=== PATIENT | female | born 1990 ===

== ENCOUNTER 2023-08-25 11:15 | Inpatient (IN) | payer OTHER ==
[2023-08-25] MEDS ORDERED: ELECTROLYTE-148 SOLN 1,000 ML IV SCH ×2 (12:45)
[2023-08-25] MEDS ORDERED: DINOPROSTONE 10 MG VAGINAL SUPPOSITORY VG ONE (13:00)
[2023-08-25 14:48] LABS: BASO % 0.4 % (0-2.0); EOS % 0.4 % (0-4.5); HEMATOCRIT 32.3 % (32.4-45.2); LYMPH % 25.9 % (8-40); MCH 29.6 pg (25.7-33.7); MEAN CELL VOLUME 87.3 fl (80-96); MONO % 5.5 % (3.8-10.2); NEUT % 67.8 % (42.8-82.8); PLATELET COUNT 181 10^3/uL (134-434); RDW 13.8 % (11.6-15.6); WHITE BLOOD COUNT 7.7 K/mm3 (4.0-10.0)
[2023-08-25 14:58] LABS: INR 1.02 (0.83-1.09); PROTHROMBIN TIME (PATIENT) 11.8 SEC (9.7-13.0)
[2023-08-25 15:00] LABS: ACTIVATED PTT 28.9 SECONDS (25.2-36.5)
[2023-08-25 15:08] LABS: POTASSIUM 4.2 mmol/L (3.5-5.1)
[2023-08-25 15:10] LABS: BLOOD UREA NITROGEN 10.6 mg/dL (7-18)
[2023-08-25 15:13] LABS: CREATININE 0.5 mg/dL (0.55-1.3)
[2023-08-25] MEDS ORDERED: CITRIC ACID/SODIUM CITRATE 30 ML UNIT-DOSE CUP PO ONE (16:15)
[2023-08-25] MEDS ORDERED: ELECTROLYTE-148 SOLN 500 ML IV SCH (16:15)
[2023-08-25] MEDS ORDERED: DEXAMETHASONE SOD PHOSPHATE 4 MG/1 ML VIAL ONE (16:26)
[2023-08-25] MEDS ORDERED: ceFAZolin SODIUM 1 GM VIAL ONE (16:26)
[2023-08-25] MEDS ORDERED: ONDANSETRON 4 MG/2 ML VIAL ONE (16:26)
[2023-08-25] MEDS ORDERED: KETOROLAC TROMETHAMINE 30 MG/1 ML VIAL ONE (16:26)
[2023-08-25] MEDS ORDERED: METOCLOPRAMIDE HCL INJECTION 10 MG/2 ML VIAL ONE (16:26)
[2023-08-25] MEDS ORDERED: PHENYLEPHRINE HCL 10 MG/1 ML SINGLE DOSE VIAL ONE (16:26)
[2023-08-25] MEDS ORDERED: ePHEDrine SULFATE 50 MG/1 ML AMPULE ONE (16:32)
[2023-08-25] MEDS ORDERED: SODIUM CHLORIDE 0.9% P/F 10 ML VIAL IJ ONE (16:32)
[2023-08-25] MEDS ORDERED: IBUPROFEN 800 MG/8 ML IJ IVPB PRN (16:34)
[2023-08-25] MEDS ORDERED: ACETAMINOPHEN 325 MG TABLET (FP) PO PRN (16:34)
[2023-08-25] MEDS ORDERED: FENTANYL CITRATE/PF 50 MCG/ML VIAL ONE (16:34)
[2023-08-25 17:28] LABS: HIV INTERPRETATION NEGATIVE (NEGATIVE)
[2023-08-25] MEDS ORDERED: OXYTOCIN 20 UNITS in 0.9% NS 20 UNIT/1,000 ML INFUS.BAG IV ONE (18:43)
[2023-08-25] MEDS: OXYTOCIN 20 UNITS in 0.9% NS 20 UNIT/1,000 ML INFUS.BAG IV SCH (18:45)
[2023-08-26] MEDS: OXYTOCIN 20 UNITS in 0.9% NS 20 UNIT/1,000 ML INFUS.BAG IV SCH (02:31)
[2023-08-26] MEDS ORDERED: oxyCODONE HCL 5 MG TABLET PO PRN (04:34)
[2023-08-26 09:16] LABS: BASO % 0.3 % (0-2.0); HEMATOCRIT 26.9 % (32.4-45.2); HEMOGLOBIN 8.8 GM/dL (10.7-15.3); LYMPH % 19.6 % (8-40); MCH 29.3 pg (25.7-33.7); MCHC 32.8 g/dl (32.0-36.0); MEAN CELL VOLUME 89.3 fl (80-96); MEAN PLT VOLUME 9.6 fl (7.5-11.1); MONO % 4.8 % (3.8-10.2); NEUT % 75.3 % (42.8-82.8); PLATELET COUNT 149 10^3/uL (134-434); RBC 3.01 M/mm3 (3.60-5.2); RDW 13.2 % (11.6-15.6); WHITE BLOOD COUNT 11.3 K/mm3 (4.0-10.0)
[2023-08-26] MEDS ORDERED: DIPHTH,PERTUSS(ACELL),TET 0.5 ML DISP.SYRIN IM ONE (10:00)
[2023-08-26] MEDS: SIMETHICONE 80 MG TAB.CHEW (FP) PO PRN ×2 (13:36→19:12)
[2023-08-26] MEDS: IBUPROFEN 600 MG TABLET (FP) PO PRN ×2 (13:36→19:12)
[2023-08-26] MEDS ORDERED: BISACODYL 10 MG SUPP.RECT RC PRN (16:34)
[2023-08-27] MEDS: IBUPROFEN 600 MG TABLET (FP) PO PRN ×3 (05:36→18:44)
[2023-08-27] MEDS: SIMETHICONE 80 MG TAB.CHEW (FP) PO PRN (05:36)
[2023-08-27] MEDS ORDERED: FLU VACCINE (FLULAVAL) PF 60 MCG/0.5 ML SYRINGE 2023-2024 IM ONE (12:30)
[2023-08-28] MEDS: SIMETHICONE 80 MG TAB.CHEW (FP) PO PRN (07:10)
[2023-08-28] MEDS: IBUPROFEN 600 MG TABLET (FP) PO PRN (07:10)
[2023-08-28 08:39] LABS: BASO % 0.3 % (0-2.0); EOS % 0.9 % (0-4.5); HEMATOCRIT 26.3 % (32.4-45.2); HEMOGLOBIN 8.7 GM/dL (10.7-15.3); LYMPH % 28.6 % (8-40); MCH 29.6 pg (25.7-33.7); MCHC 33.1 g/dl (32.0-36.0); MEAN CELL VOLUME 89.5 fl (80-96); MEAN PLT VOLUME 8.6 fl (7.5-11.1); NEUT % 65.2 % (42.8-82.8); PLATELET COUNT 174 10^3/uL (134-434); RBC 2.94 M/mm3 (3.60-5.2); RDW 13.3 % (11.6-15.6); WHITE BLOOD COUNT 5.7 K/mm3 (4.0-10.0)
[2023-08-28] MEDS ORDERED: PRENATAL VITAMINS W/ FOLIC ACID TABLET (FP) PO SCH (10:00)
[2023-08-28 11:55] VITALS: BP 130/77; PULSE 72; RESP 16; TEMP 98.7
== END 2023-08-28 12:15 | disposition home or self-care (01) | DRG 540 ==
LOC: JLDR 11:15 → J3W 19:52
PROVIDERS: ADMIT Student in an Organized Health Care Education/Training Program; ATTEND Student in an Organized Health Care Education/Training Program
PROC: 10D00Z1 Extraction of Products of Conception, Low, Open Approach (ICD-10-PCS; principal; 2023-08-25)
PROC: 3E0P7VZ Introduction of Hormone into Female Reproductive, Via Natural or Artificial Opening (ICD-10-PCS; 2023-08-25)
DX: O48.0 Post-term pregnancy (principal); O62.0 Primary inadequate contractions; O76 Abnormality in fetal heart rate and rhythm complicating labor and delivery; Z37.0 Single live birth; Z3A.41 41 weeks gestation of pregnancy
CPT/HCPCS: 36415; 80048; 85025; 85610; 85730; 86780; 86803; 86850; 86900; 86901; 87389; 88307-TC; 90686; 90715; 94010; G0008

== ENCOUNTER 2023-09-04 16:15 | Emergency (ER) | payer OTHER ==
[2023-09-04 16:26] VITALS: BMI 22.7
[2023-09-04 18:24] LABS: BASO % 0.4 % (0-2.0); EOS % 1.7 % (0-4.5); HEMATOCRIT 34.6 % (32.4-45.2); HEMOGLOBIN 11.6 GM/dL (10.7-15.3); MCH 29.7 pg (25.7-33.7); MCHC 33.5 g/dl (32.0-36.0); MEAN CELL VOLUME 88.8 fl (80-96); MEAN PLT VOLUME 7.5 fl (7.5-11.1); NEUT % 59.9 % (42.8-82.8); PLATELET COUNT 397 10^3/uL (134-434); RDW 13.7 % (11.6-15.6); WHITE BLOOD COUNT 7.1 K/mm3 (4.0-10.0)
[2023-09-04 18:44] LABS: POTASSIUM 4.3 mmol/L (3.5-5.1)
[2023-09-04 18:46] LABS: BLOOD UREA NITROGEN 17.4 mg/dL (7-18); CALCIUM 8.7 mg/dL (8.5-10.1)
[2023-09-04 18:47] LABS: ALBUMIN 3.3 g/dl (3.4-5.0)
[2023-09-04 18:49] LABS: CREATININE 0.6 mg/dL (0.55-1.3)
[2023-09-04 18:50] LABS: BILIRUBIN,TOTAL 0.3 mg/dL (0.2-1); TOT PROT 7.1 g/dl (6.4-8.2)
[2023-09-04 19:14] VITALS: BP 109/73; PULSE 73; RESP 20; TEMP 97.8
== END 2023-09-04 19:14 | disposition home or self-care (01) ==
LOC: JER 16:15
DX: L76.22 Postprocedural hemorrhage of skin and subcutaneous tissue following other procedure (principal)
CPT/HCPCS: 36415; 80053; 85025; 99283-25